=== PATIENT | female | born 1980 | race Two or more races ===

== ENCOUNTER 2016-07-30 21:37 | Emergency (ER) | payer OTHER ==
--- NOTE | 2016-07-30 23:58 | PHYS DOC ---
General Stated Complaint: VOMITING,HEADACHE Time Seen by MD: 23:22 Source: patient, family Problems: History of Present Illness Initial Comments Patient here for headache and dizziness. Patient is somewhat of a difficult historian, but does have a fair command of Pashto and is very participatory in her own history. Patient indicates that she has had ongoing issues for the last 4 months. She says she's had an inability sleep for last 4 months which she treated was to anxiety. She says that if she falls asleep she is afraid she will wake up. She says she's had some headache during this time as well. When asked what brings her in to see us today, she states that she's been dizzy. She describes her dizziness as a vertiginous feeling and not as a presyncopal feeling or ataxic feeling. She's really unable to telemetry when it started. She then says that she is also here tonight because her headache is worse. She describes her headache being worse, she describes is having too many thoughts going on her head at one time. There is no actual history of head injury or trauma. She says she's never really had headaches like this before, or to this extent. She's had no fever or chills. There is no URI symptoms or cough. There is no change in vision or speech. She has no neck or back pain. She says she occasionally has some shortness of breath with these episodes, she's had some nausea as well. There is no vomiting. There is no abdominal pain. Her last period was several weeks ago. She denies chance of . There is no change amount or bladder habits she denies any acute focal extremity or neurologic complaints. Patient states she's had problems with anxiety before and thinks this may be related to her anxiety. She says she also has had some depression. Other than present for care tonight has been nothing done for this prior to arrival in the ED and no fractures noted increase or decrease any symptoms she might have. Patient's past history is remarkable for what sounds like anxiety and depression, though not sure she's never been diagnosed with formal medication for this. She does take some kind of antihistamine from [facility] for her symptoms. 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 She also has gastritis. She is a nonsmoker and nonuser of ethanol. Allergies: Coded Allergies: No Known Allergies (Verified Allergy, Unknown, 07/30/16) Past Medical History Medical History: no pertinent history Psychosocial History: anxiety, depression Social History Smoker: non-smoker Alcohol: none Review of Systems All Other Systems: Reviewed and Negative Physical Exam General Appearance: WD/WN, no apparent distress Eyes: bilateral eye EOMI, bilateral eye PERRL, bilateral eye normal inspection Ear, Nose, Throat: normal ENT inspection, normal pharynx Neck: full range of motion, supple, normal inspection Respiratory: lungs clear, normal breath sounds, no respiratory distress Cardiovascular: regular rate, rhythm, no edema Gastrointestinal: non tender, soft Back: no CVA tenderness, no vertebral tenderness Extremities: non-tender, normal inspection, no pedal edema Neurologic/Psychiatric: design lead II-XII nml as tested, no motor/sensory deficits, alert, normal mood/affect, oriented x 3 Skin: normal color Lymphatic: no adenopathy Comments Generally this is a well-developed well-nourished female in no acute distress. She does look mildly anxious. Vitals are as noted. Pertinent findings on physical exam shows the head to be normocephalic. Scalp is fully nontender. Pupils are equal reactive light and accommodation. Extra ocular movements are intact. Ears and throat are clear. Neck is supple without adenopathy or JVD. There's no meningeal signs. Chest is clear to auscultation bilaterally. Cardiac vascular exam shows regular rate and rhythm without murmur. The abdomen is soft and nontender without masses or organomegaly or perineal findings. Back shows no CVA tenderness. Extremity show no rashes, cyanosis, or edema. Neurologic exam finds patient awake alert oriented 4. Cranial nerves II through XII grossly intact. Strength 5 over 5 equal all sites tested. There are no gross sensory deficits. She stands without difficulty and Romberg is negative. Remainder of physical exam is clinically unremarkable. Orders, Labs, Meds Old charts note no prior ER visits within the current system. EKG shows sinus at 80. Normal axis. No acute ST or T-wave changes. Labs today are clinically unremarkable. CT scan ahead shows no acute changes per radiology. There is a very small hyperdensity in the left basal ganglia thought to be a minute calcification. 0040 Patient resting comfortably in the ER. She says she continues to feel somewhat scared intense, but seems reassured knowing her CT scan and labs are normal at this time. The patient continues to reflect back on anxiety depression and insomnia, and I do think that's probably the most likely cause of at least some of her symptoms. I suggested that might be willing to trial her on a low-dose of anxiolytics. She is here visiting from [facility] with her at before, and will be going back in 2 months. She really doesn't have a local physician. I suggested I usually don't prescribe medication for outpatient follow-up, but in this case would be willing to prescribe a limited supply of anxiolytics. She does voice understanding of the need to follow-up with the doctor on post or to follow-up with her own doctor when she returns to [facility]. She thinks anxiety medicine will help. She also asks about medicine for her dizziness and her gastritis, and I suggested at this time I think much to start one medication and see if that affects all of her issues. She is quite agreeable to this plan. Plan is also understood by the female friend in the room with her. We'll go ahead and give her dose of Xanax tonight help her get some sleep as well. They voice understanding need for follow-up as well as to return to the ER immediately as needed if worsen anyway. She looks well, mildly anxious no acute somatic distress or discomfort, and okay for discharge home with friend at this time. JOHN ARENAS MD Jul 30, 2016 23:58
--- NOTE | 2016-07-31 00:02 | RAD ---
PROCEDURE CT head without contrast. HISTORY Headache. Nausea and weakness. TECHNIQUE Helical CT imaging of the brain is performed without IV contrast. PQRS: One or more the following individualized dose reduction techniques were utilized for the study: 1. Automated exposure control. 2. Adjustment of the mA and/or kV according to patient size. 3. Use of iterative reconstruction technique. COMPARISON None. FINDINGS There is no midline shift or mass effect. No extra-axial fluid collection. There is a 5 millimeter faint hyperdensity in the left basal ganglia. A tiny hemorrhage is felt unlikely. An incidental faint calcification is more likely. Mendoza-white matter differentiation is preserved. Ventricles and sulci are normal for patient age. The visualized paranasal sinuses and mastoid air cells are clear. The globes and orbits appear intact. No acute calvarial abnormality. IMPRESSION Tiny faint hyperdensity of the left basal ganglia. Incidental calcification is favored over hemorrhage. Short-term CT follow-up in a few hours could be performed to re-evaluate. Electronically signed by: Rafy Samuels MD (Jul 31, 2016 00:00:41)
[2016-07-31 00:21] LABS: BASO % 0 % (0-3); EOS % 0 % (0-3); HEMATOCRIT 43.6 % (36.0-47.0); HEMOGLOBIN 14.4 g/dL (12.0-15.5); LYMPH # 1.1 x10^3/uL (1.0-4.8); LYMPH % 10 % (24-48); MEAN CORPUSCULAR HEMOGLOBIN 31 pg (25-35); MEAN CORPUSCULAR HGB CONC 33 g/dL (31-37); MEAN CORPUSCULAR VOLUME 95 fL (79-100); MONO # 0.3 x10^3/uL (0.0-1.1); MONO % 3 % (0-9); NEUT # 9.5 x10^3uL (1.8-7.7); NEUT % 86 % (31-73); PLATELET COUNT 231 x10^3/uL (140-400); RED BLOOD COUNT 4.59 x10^6/uL (3.50-5.40)
[2016-07-31 00:25] LABS: ALBUMIN 4.2 g/dL (3.4-5.0); CALCIUM 9.6 mg/dL (8.5-10.1); CREATININE 0.7 mg/dL (0.6-1.0); GFR 95.2; POTASSIUM 3.9 mmol/L (3.5-5.1); TOTAL BILIRUBIN 0.5 mg/dL (0.2-1.0); TOTAL PROTEIN 8.4 g/dL (6.4-8.2)
[2016-07-31 00:32] LABS: BILIRUBIN,URINE NEG (NEG); CLARITY,URINE CLEAR; COLOR,URINE COLORLESS; GLUCOSE,URINE NEG (NEG)
[2016-07-31 00:33] LABS: BACTERIA,URINE 0 /HPF (0-FEW); NITRITE,URINE NEG (NEG); RBC,URINE 0 /HPF (0-2); SQUAMOUS EPITHELIAL CELL,UR OCC /LPF; UROBILINOGEN,URINE 0.2 mg/dL (0.2 mg/dL); WBC,URINE OCC /HPF (0-4)
[2016-07-31 01:07] VITALS: BP 116/67
[2016-07-31] MEDS ORDERED: ALPRAZOLAM 0.25 MG TABLET PO ONE (01:15)
--- NOTE | 2016-07-31 03:51 | EKG ---
[address] [address] Test Date: 2016-07-31 Test Time: 00:09:49 Pat Name: SONAL PINK Department: Room: Gender: F [employer] Cutter: : 1980 Requested By: JOHN ARENAS Order Number: [id number] Reading MD: Measurements Intervals [place] Rate: 83 P: -24 DE: 110 QRS: 49 QRSD: 66 T: 14 QT: 392 QTc: 461 Interpretive Statements SINUS RHYTHM QRS(T) CONTOUR ABNORMALITY CONSIDER ANTEROSEPTAL MYOCARDIAL DAMAGE POSSIBLY ABNORMAL ECG RI6.01 Unconfirmed report No previous ECG available for comparison
== END 2016-07-31 01:07 | disposition home or self-care (01) ==
LOC: ER 21:37
DX: F41.9 Anxiety disorder, unspecified (principal); G89.29 Other chronic pain; R51 Headache; R42 Dizziness and giddiness; R06.02 Shortness of breath; F32.9 Major depressive disorder, single episode, unspecified
CPT/HCPCS: 36415; 70450; 80053; 81001; 81025; 84703; 85027; 93005; 99285-25